=== PATIENT | female | born 1985 | race Caucasian/White ===

== ENCOUNTER 2017-04-17 17:17 | Emergency (ER) | payer OTHER ==
--- NOTE | 2017-04-17 19:32 | EDM.PDOC ---
<Jem Leija - Last Filed: 04/17/17 19:32> ED HPI GENERAL MEDICAL PROBLEM - General Chief Complaint: Abdominal Pain Stated Complaint: R ABDOMINAL PAIN Time Seen by Provider: 04/17/17 18:41 Source of Information: Reports: Patient, RN Notes Reviewed History Limitations: Reports: No Limitations - History of Present Illness INITIAL COMMENTS - FREE TEXT/NARRATIVE: The patient states that she developed sharp/shooting pain to her right lower quadrant this morning. The pain has been coming and going ever since, usually lasting about 15-20 minutes. She states that she is pain-free at this time. When she has the pain, it is made better if she presses on her right lower quadrant, but she has not noticed any other modifiers. She states that she has not an appetite today, but denies nausea, vomiting, constipation, urinary symptoms, or fever. She states that she had watery diarrhea this past 04/15/2017, but none since. No prior similar symptoms. The patient has not tried any home remedies or treatments. The patient's LMP was 03/29/2017, and was normal. The patient's PCP is her Medical Chemist, Dr. Stallings. 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 - Past Surgical History HEENT Surgical History: Reports: Oral Surgery ([place] teeth extraction) Social & Family History - Family History Family Medical History: Noncontributory - Tobacco Use Smoking Status *Q: Never Smoker Second Hand Smoke Exposure: Yes - Caffeine Use Caffeine Use: Reports: Soda - Alcohol Use Alcohol Use History: Yes Alcohol Use Frequency: Socially - Recreational Drug Use Recreational Drug Use: No - Living Situation & Occupation Living situation: Reports: , with Family (Daughter) ED ROS GENERAL - Review of Systems Review Of Systems: See Below Constitutional: Reports: No Symptoms HEENT: Reports: No Symptoms, Other (Sinus congestion x 5-6 weeks) Respiratory: Reports: Cough (x 5-6 weeks) Cardiovascular: Reports: No Symptoms Endocrine: Reports: No Symptoms GI/Abdominal: Reports: No Symptoms : Reports: No Symptoms Musculoskeletal: Reports: No Symptoms Skin: Reports: No Symptoms Neurological: Reports: No Symptoms Psychiatric: Reports: No Symptoms Hematologic/Lymphatic: Reports: No Symptoms Immunologic: Reports: No Symptoms ED EXAM, GI/ABD - Physical Exam Exam: See Below Exam Limited By: No Limitations General Appearance: Alert, WD/WN, No Apparent Distress Eyes: Bilateral: Normal Appearance, EOMI Ears: Normal External Exam, Hearing Grossly Normal Nose: Normal Inspection, No Blood Throat/Mouth: Normal Inspection, Normal Lips, Normal Voice, No Airway Compromise Head: Atraumatic, Normocephalic Neck: Normal Inspection, Full Range of Motion Respiratory/Chest: No Respiratory Distress, Lungs Clear, Normal Breath Sounds, No Accessory Muscle Use Cardiovascular: Normal Peripheral Pulses, Regular Rate, Rhythm, No Gallop, No JVD, No Murmur, No Rub GI/Abdominal Exam: Normal Bowel Sounds, Soft, Non-Tender (even to the RLQ), No Organomegaly, No Distention, No Abnormal Bruit, No Mass, Pelvis Stable (Female) Exam: Deferred Rectal (Female) Exam: Deferred Back Exam: Normal Inspection, Full Range of Motion. No: CVA Tenderness (L), CVA Tenderness (R) Extremities: Normal Inspection, Normal Range of Motion, No Pedal Edema, Normal Capillary Refill Neurological: Alert, Oriented, Normal Cognition, No Motor/Sensory Deficits Psychiatric: Normal Affect Skin Exam: Warm, Dry, Intact, Normal Color, No Rash Course - Vital Signs Last Recorded V/S: Last Vital Signs Temp 97.4 F 04/17/17 17:40 Pulse 79 04/17/17 17:40 Resp 16 04/17/17 17:40 BP 126/82 04/17/17 17:40 Pulse Ox 100 04/17/17 17:40 - Orders/Labs/Meds Orders: Active Orders 24 hr Category Date Time Status Abdomen 1V Upright [CR] Stat Exams 04/17/17 19:08 Stop Req Labs: Laboratory Tests 04/17/17 04/17/17 04/17/17 Range/Units 19:18 19:18 19:18 WBC 6.66 (3.98-10.04) K/mm3 RBC 4.83 (3.98-5.22) M/mm3 Hgb 14.3 (11.2-15.7) gm/L Hct 41.9 (34.1-44.9) % MCV 86.7 (79.4-94.8) fl MCH 29.6 (25.6-32.2) pg MCHC 34.1 (32.2-35.5) g/dl RDW Std Deviation 42.2 (36.4-46.3) fL Plt Count 327 (182-369) K/mm3 MPV 9.3 L (9.4-12.3) fl Neutrophils % (Manual) 45 (40-60) % Band Neutrophils % 0 (0-10) % Lymphocytes % (Manual) 48 H (20-40) % Atypical Lymphs % 0 % Monocytes % (Manual) 6 (2-10) % Eosinophils % (Manual) 1 (0.7-5.8) % Basophils % (Manual) 0 L (0.1-1.2) Platelet Estimate Adequate RBC Morph Comment Normal Sodium 141 (136-145) mEq/L Potassium 3.8 (3.5-5.1) mEq/L Chloride 106 (98-107) mEq/L Carbon Dioxide 24 (21-32) mEq/L Anion Gap 14.8 (5-15) BUN 14 (7-18) mg/dL Creatinine 0.9 (0.55-1.02) mg/dL Est Cr Clr Drug Dosing 78.93 mL/min Estimated GFR (MDRD) > 60 (>60) mL/min BUN/Creatinine Ratio 15.6 (14-18) Glucose 90 (74-106) mg/dL Calcium 8.5 (8.5-10.1) mg/dL Total Bilirubin 0.5 (0.2-1.0) mg/dL AST 18 (15-37) U/L ALT 26 (14-59) U/L Alkaline Phosphatase 52 (46-116) U/L C-Reactive Protein < 0.2 (<1.0) mg/dL Total Protein 7.4 (6.4-8.2) g/dl Albumin 3.5 (3.4-5.0) g/dl Globulin 3.9 gm/dL Albumin/Globulin Ratio 0.9 L (1-2) Lipase 256 (73-393) U/L Urine Color (Yellow) Urine Appearance (Clear) Urine pH (5.0-8.0) Ur Specific [place] (1.005-1.030) Urine Protein (Negative) Urine Glucose (UA) (Negative) Urine Ketones (Negative) Urine Occult Blood (Negative) Urine Nitrite (Negative) Urine Bilirubin (Negative) Urine Urobilinogen (0.2-1.0) Ur Leukocyte Esterase (Negative) Urine RBC (0-5) /hpf Urine WBC (0-5) /hpf Ur Epithelial Cells (0-5) /hpf Urine Bacteria (FEW) /hpf Urine Mucus (FEW) /hpf Urine HCG, Qual (NEGATIVE) 04/17/17 04/17/17 Range/Units 19:20 19:20 WBC (3.98-10.04) K/mm3 RBC (3.98-5.22) M/mm3 Hgb (11.2-15.7) gm/L Hct (34.1-44.9) % MCV (79.4-94.8) fl MCH (25.6-32.2) pg MCHC (32.2-35.5) g/dl RDW Std Deviation (36.4-46.3) fL Plt Count (182-369) K/mm3 MPV (9.4-12.3) fl Neutrophils % (Manual) (40-60) % Band Neutrophils % (0-10) % Lymphocytes % (Manual) (20-40) % Atypical Lymphs % % Monocytes % (Manual) (2-10) % Eosinophils % (Manual) (0.7-5.8) % Basophils % (Manual) (0.1-1.2) Platelet Estimate RBC Morph Comment Sodium (136-145) mEq/L Potassium (3.5-5.1) mEq/L Chloride (98-107) mEq/L Carbon Dioxide (21-32) mEq/L Anion Gap (5-15) BUN (7-18) mg/dL Creatinine (0.55-1.02) mg/dL Est Cr Clr Drug Dosing mL/min Estimated GFR (MDRD) (>60) mL/min BUN/Creatinine Ratio (14-18) Glucose (74-106) mg/dL Calcium (8.5-10.1) mg/dL Total Bilirubin (0.2-1.0) mg/dL AST (15-37) U/L ALT (14-59) U/L Alkaline Phosphatase (46-116) U/L C-Reactive Protein (<1.0) mg/dL Total Protein (6.4-8.2) g/dl Albumin (3.4-5.0) g/dl Globulin gm/dL Albumin/Globulin Ratio (1-2) Lipase (73-393) U/L Urine Color Light yellow (Yellow) Urine Appearance Clear (Clear) Urine pH 6.5 (5.0-8.0) Ur Specific [place] 1.020 (1.005-1.030) Urine Protein Negative (Negative) Urine Glucose (UA) Negative (Negative) Urine Ketones Negative (Negative) Urine Occult Blood Trace-intact H (Negative) Urine Nitrite Negative (Negative) Urine Bilirubin Negative (Negative) Urine Urobilinogen 0.2 (0.2-1.0) Ur Leukocyte Esterase Trace H (Negative) Urine RBC 0-5 (0-5) /hpf Urine WBC 0-5 (0-5) /hpf Ur Epithelial Cells 5-10 H (0-5) /hpf Urine Bacteria Few (FEW) /hpf Urine Mucus Few (FEW) /hpf Urine HCG, Qual Negative (NEGATIVE) - Re-Assessments/Exams Free Text/Narrative Re-Assessment/Exam: 04/17/17 19:33 The patient reports intermittent right lower quadrant pain since this morning, but is pain-free here in the ED, and her abdominal exam is benign, with no tenderness. I have ordered blood work, a urinalysis, a urine test, and an upright abdominal x-ray, however, I do not feel that the benefit of a CT scan of the abdomen and pelvis is worse the risk from radiation, as the likelihood of finding the cause of her pain is very low, given her current physical exam status. If her clinical condition changes, this can be reconsidered. This was explained to the patient, who understands. Case discussed with Dr. Abhi Hernandez, and care of the patient turned over to him at this time, for change of shift. Departure - Departure Disposition: Home, Self-Care 01 Clinical Impression: Abdominal pain Qualifiers: Abdominal location: right lower quadrant Qualified Code(s): R10.31 - Right lower quadrant pain - Discharge Information Referrals: Eduardo Stallings MD [Primary Care Provider] - Forms: ED Department Discharge Additional Instructions: Clear liquids and then very bland diet as tolerated, probiotic and take that twice daily for about the next week, follow-up clinic as needed, return to ED as needed, especially if you do develop worsening pain of your right lower abdomen and symptoms otherwise worsening in any way. <TerriAbhi Boyd - Last Filed: 04/17/17 20:08> Course - Re-Assessments/Exams Free Text/Narrative Re-Assessment/Exam: 04/17/17 20:06 Have assumed care from Dr. Leija after change of shift. I agree with his history and exam as documented. She did have a couple episodes of mild discomfort while awaiting lab work but once again her pain is completely gone. On exam of her abdomen she is totally nontender including right upper quadrant and right lower quadrant with no guarding or rebound at this time. White Blood count came back normal with no left shift. C-reactive protein 0.2. She does not have a surgical abdomen at this time. For some reason the x-ray previously ordered of her abdomen has not yet been done so I have canceled that exam. Of note she did have a couple of episodes of diarrhea last week and appetite has not been completely back to normal since then. Discharge instructions as documented. Departure - Departure Time of Disposition: 20:03 Condition: Fair
== END 2017-04-17 20:10 | disposition home or self-care (01) ==
LOC: JD.ED 17:17
DX: R10.31 Right lower quadrant pain (principal)
CPT/HCPCS: 36415; 80053; 81001; 81025; 83690; 85025; 86140; 99282; 99284

== ENCOUNTER 2021-04-04 01:20 | Emergency (ER) | payer OTHER ==
--- NOTE | 2021-04-04 01:49 | EDM.PDOC ---
ED HPI GENERAL MEDICAL PROBLEM - General Chief Complaint: Abdominal Pain Stated Complaint: 19WKS PREG/ABD PAIN Time Seen by Provider: 04/04/21 01:39 - History of Present Illness INITIAL COMMENTS - FREE TEXT/NARRATIVE: 35-year-old female presents the emergency room with abdominal pain. Patient is 19 weeks she is a 2 para 1. Roughly 3 to 4 hours prior to arrival the patient developed some right mid abdominal pain. Patient has not experienced pain like this in the past. She has not had any associated nausea or vomiting with this no diarrhea. Patient denies any fevers or chills. Prior to this is gone without any problems. Her forest pathologist is Dr. Stallings. Abdominal Pain Score (Numeric/FACES): 8 - Related Data Allergies Allergy/AdvReac Type Severity Reaction Status Date / Time No Known Allergies Allergy Verified 04/04/21 01:38 Home Meds: Home Meds . 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 Denies: Constipation, Diarrhea, Nausea, Vomiting : Reports: No Symptoms Musculoskeletal: Reports: No Symptoms Skin: Reports: No Symptoms Neurological: Reports: No Symptoms ED EXAM, GENERAL - Physical Exam Exam: See Below Exam Limited By: No Limitations General Appearance: Alert, No Apparent Distress Head: Atraumatic, Normocephalic Neck: Normal Inspection, Supple, Non-Tender, Full Range of Motion Respiratory/Chest: No Respiratory Distress, Lungs Clear, Normal Breath Sounds Cardiovascular: Regular Rate, Rhythm, No Edema, No Murmur GI/Abdominal: Normal Bowel Sounds, Soft, Other (Fundal height is nearly to the umbilicus. At the top of this more towards the right side the patient seems to have palpatory discomfort and this is the pain that brought her in.) Back Exam: Normal Inspection. No: CVA Tenderness (L), CVA Tenderness (R) Course - Vital Signs Last Recorded V/S: Last Vital Signs Temp 36.9 C 04/04/21 01:35 Pulse 91 04/04/21 01:35 Resp 16 04/04/21 01:35 BP 128/71 04/04/21 01:35 Pulse Ox 100 04/04/21 01:35 - Orders/Labs/Meds Orders: Active Orders 24 hr Category Date Time Status Abdomen Ltd [US] Stat Exams 04/04/21 03:15 Taken Lactated Ringers [Ringers, Lactated] 1,000 ml Med 04/04/21 02:15 Active IV ASDIRECTED Medication Orders Lactated Ringer's (Ringers, Lactated) 1,000 mls @ 100 mls/hr IV ASDIRECTED LI Last Admin: 04/04/21 02:16 Dose: 100 mls/hr Documented by: EDUIN Labs: Laboratory Tests 04/04/21 04/04/21 04/04/21 Range/Units 02:03 02:03 03:10 WBC 10.90 H (3.98-10.04) K/mm3 RBC 4.06 (3.98-5.22) M/mm3 Hgb 12.4 (11.2-15.7) gm/dl Hct 36.8 (34.1-44.9) % MCV 90.6 (79.4-94.8) fl MCH 30.5 (25.6-32.2) pg MCHC 33.7 (32.2-35.5) g/dl RDW Std Deviation 46.1 (36.4-46.3) fL Plt Count 256 D (182-369) K/mm3 MPV 9.4 (9.4-12.3) fl Neut % (Auto) 66.1 (34.0-71.1) % Lymph % (Auto) 23.9 (19.3-51.7) % [place] % (Auto) 7.9 (4.7-12.5) % Eos % (Auto) 1.2 (0.7-5.8) Baso % (Auto) 0.3 (0.1-1.2) % Neut # (Auto) 7.22 H (1.56-6.13) K/mm3 Lymph # (Auto) 2.60 (1.18-3.74) K/mm3 [place] # (Auto) 0.86 H (0.24-0.36) K/mm3 Eos # (Auto) 0.13 (0.04-0.36) K/mm3 Baso # (Auto) 0.03 (0.01-0.08) K/mm3 Sodium 140 (136-145) mEq/L Potassium 3.7 (3.5-5.1) mEq/L Chloride 107 (98-107) mEq/L Carbon Dioxide 24 (21-32) mEq/L Anion Gap 12.7 (5-15) BUN 11 (7-18) mg/dL Creatinine 0.7 (0.55-1.02) mg/dL Est Cr Clr Drug Dosing 97.79 mL/min Estimated GFR (MDRD) > 60 (>60) mL/min BUN/Creatinine Ratio 15.7 (14-18) Glucose 88 (70-99) mg/dL Calcium 8.2 L (8.5-10.1) mg/dL Total Bilirubin 0.3 (0.2-1.0) mg/dL AST 17 (15-37) U/L ALT 25 (14-59) U/L Alkaline Phosphatase 52 (46-116) U/L C-Reactive Protein 2.1 H* (<1.0) mg/dL Total Protein 6.3 L (6.4-8.2) g/dl Albumin 2.8 L (3.4-5.0) g/dl Globulin 3.5 gm/dL Albumin/Globulin Ratio 0.8 L (1-2) Lipase 178 (73-393) U/L Urine Color Yellow (Yellow) Urine Appearance Clear (Clear) Urine pH 6.5 (5.0-8.0) Ur Specific [place] 1.020 (1.005-1.030) Urine Protein Negative (Negative) Urine Glucose (UA) Negative (Negative) Urine Ketones Negative (Negative) Urine Occult Blood Negative (Negative) Urine Nitrite Negative (Negative) Urine Bilirubin Negative (Negative) Urine Urobilinogen 0.2 (0.2-1.0) Ur Leukocyte Esterase Negative (Negative) Meds: Medications Generic Name Dose Route Start Last Admin Trade Name Freq PRN Reason Stop Dose Admin Lactated Ringer's 1,000 mls @ 100 mls/hr 04/04/21 02:15 04/04/21 02:16 Ringers, Lactated IV 100 mls/hr ASDIRECTED [facility] Administration - Re-Assessments/Exams Free Text/Narrative Re-Assessment/Exam: 04/04/21 06:35 Laboratory evaluation is nonsuggestive C-reactive protein is minimally elevated at 2.1. I did order an abdominal ultrasound which is unrevealing other than she has a 3.3 x 1.1 x 1.8 cm soft tissue density in the umbilical region thought to represent an umbilical hernia. After reviewing this I did go back and the patient is somewhat overweight but could palpate the midline hernia her pain initially was over towards the right but with palpation of this she has pain that goes to the right. Case discussed with Dr. Stallings who I have reviewed the case with and will see the patient in follow-up tomorrow morning at approximately 9 AM Departure - Departure Time of Disposition: 06:37 Disposition: Home, Self-Care 01 Clinical Impression: Abdominal pain affecting , Umbilical hernia - Discharge Information Referrals: Eduardo Stallings MD [Primary Care Provider] - Forms: ED Department Discharge Additional Instructions: Return to the emergency room with any questions problems or worsening symptoms. Return if you develop nausea worsening pain bloating or other concerning abdominal symptoms. Follow-up with Dr. Stallings Monday morning call his office at 8:00 and tell them that you were seen here in the emergency room and the case was reviewed with Dr. Stallings who wants to see you at around 9:00 after his morning surgical case. Tylenol as needed Sepsis Event Note (ED) - Evaluation Sepsis Screening Result: No Definite Risk - Focused Exam Vital Signs: Vital Signs Temp Pulse Resp BP Pulse Ox 04/04/21 01:35 36.9 C 91 16 128/71 100 - My Orders Last 24 Hours: My Active Orders 04/04/21 02:15 Lactated Ringers [Ringers, Lactated] 1,000 ml IV ASDIRECTED 04/04/21 03:15 Abdomen Ltd [US] Stat - Assessment/Plan Last 24 Hours: My Active Orders 04/04/21 02:15 Lactated Ringers [Ringers, Lactated] 1,000 ml IV ASDIRECTED 04/04/21 03:15 Abdomen Ltd [US] Stat
[2021-04-04] MEDS ORDERED: Lactated Ringers 1,000 ML IV SCH (02:15)
--- NOTE | 2021-04-04 08:19 | US ---
Limited abdominal ultrasound: Multiple real-time images of the upper right abdomen were obtained. Comparison: No prior abdominal imaging is available. Liver shows no focal abnormality. Pancreas shows no discrete abnormality. Right kidney shows no hydronephrosis or mass. Right kidney has a length of 11.5 cm. Gallbladder contains no shadowing gallstones. No gallbladder wall thickening or biliary duct dilatation is seen. Hyperechoic area is seen within the superficial abdominal wall in the area of the umbilicus presumably due to fat containing umbilical hernia. This finding measures 3.3 x 1.1 x 1.8 cm. Inferior vena cava is patent. Normal hepatopedal flow is seen within the portal vein. Impression: 1. Fat-containing umbilical hernia. 2. No additional abnormality is seen on right upper quadrant abdominal ultrasound. Diagnostic code #2 I agree with preliminary report from [facility], finalized on 04/04/21, 7:12 AM CDT, code 1
== END 2021-04-04 06:46 | disposition home or self-care (01) ==
LOC: JD.ED 01:20
DX: O99.612 Diseases of the digestive system complicating pregnancy, second trimester (principal); K42.9 Umbilical hernia without obstruction or gangrene; Z3A.19 19 weeks gestation of pregnancy
CPT/HCPCS: 36415; 76705; 80053; 81003; 83690; 85025; 86140; 99284; J7120

== ENCOUNTER 2021-08-26 06:51 | Inpatient (IN) | payer OTHER ==
[2021-08-26] MEDS ORDERED: Ondansetron 4 MG/2 ML SDV IVPUSH PRN (07:46)
[2021-08-26] MEDS ORDERED: Sodium Chloride 0.9% 10 ML Syringe FLUSH PRN (07:46)
[2021-08-26] MEDS ORDERED: Nalbuphine 10 MG/1 ML Vial IVPUSH PRN (07:46)
[2021-08-26] MEDS ORDERED: Oxytocin/Lactated Ringers 10 UNIT/1,000 ML BAG IV SCH ×2 (08:00)
[2021-08-26] MEDS ORDERED: Misoprostol 25 MCG (1/4 of 100 MCG) Tab VAG ONE (09:05)
[2021-08-26] MEDS: Lactated Ringers 1,000 ML IV SCH ×3 (09:15→18:21)
[2021-08-26] MEDS ORDERED: fentaNYL 100 MCG/2 ML SDV EPIDUR PRN (10:37)
[2021-08-26] MEDS ORDERED: diphenhydrAMINE 50 MG/ML SDV IVPUSH PRN (10:37)
[2021-08-26] MEDS ORDERED: Bupivacaine/fentaNYL/NS 100 ML Bag EPIDUR PRN (10:37)
[2021-08-26] MEDS ORDERED: ePHEDrine 50 MG/ML SDV IVPUSH PRN (10:37)
[2021-08-26] MEDS: Sodium Chloride 0.9% 10 ML Syringe FLUSH SCH (23:12)
[2021-08-26] MEDS ORDERED: Witch Hazel Medicated Pads 40/Jar TOP PRN (23:14)
[2021-08-26] MEDS ORDERED: Benzocaine/Menthol 20%-0.5% Spray 78 GM Cannister TOP PRN (23:14)
[2021-08-26] MEDS ORDERED: Acetaminophen 325 MG Tab PO PRN (23:14)
[2021-08-27] MEDS: Ibuprofen 600 MG Tab PO PRN ×5 (00:28→20:48)
[2021-08-27] MEDS: Docusate Sodium 100 MG Cap PO SCH ×2 (07:43→12:31)
[2021-08-27] MEDS: Prenatal Multivitamin with Calcium/Folic Acid/Iron Tab PO SCH ×2 (07:44→09:24)
[2021-08-28] MEDS: Ibuprofen 600 MG Tab PO PRN (03:21)
[2021-08-28] MEDS: Prenatal Multivitamin with Calcium/Folic Acid/Iron Tab PO SCH (12:02)
[2021-08-28] MEDS: Docusate Sodium 100 MG Cap PO SCH (12:02)
== END 2021-08-28 11:50 | disposition home or self-care (01) | DRG 807 ==
LOC: JD.OB 06:51 → OBSVTOIN 21:52 → JD.OB 21:52
PROVIDERS: ADMIT Obstetrics & Gynecology; ATTEND Obstetrics & Gynecology
PROC: 10E0XZZ Delivery of Products of Conception, External Approach (ICD-10-PCS; principal; 2021-08-26)
PROC: 0KQM0ZZ Repair Perineum Muscle, Open Approach (ICD-10-PCS; 2021-08-26)
PROC: 10H07YZ Insertion of Other Device into Products of Conception, Via Natural or Artificial Opening (ICD-10-PCS; 2021-08-26)
PROC: 10907ZC Drainage of Amniotic Fluid, Therapeutic from Products of Conception, Via Natural or Artificial Opening (ICD-10-PCS; 2021-08-26)
PROC: 3E0P7VZ Introduction of Hormone into Female Reproductive, Via Natural or Artificial Opening (ICD-10-PCS; 2021-08-26)
PROC: 3E0R3BZ Introduction of Anesthetic Agent into Spinal Canal, Percutaneous Approach (ICD-10-PCS; 2021-08-26)
DX: O69.1XX0 Labor and delivery complicated by cord around neck, with compression, not applicable or unspecified (principal); Z37.0 Single live birth; O76 Abnormality in fetal heart rate and rhythm complicating labor and delivery; Z3A.39 39 weeks gestation of pregnancy; O70.1 Second degree perineal laceration during delivery; O40.3XX0 Polyhydramnios, third trimester, not applicable or unspecified; O99.214 Obesity complicating childbirth; Z20.822 Contact with and (suspected) exposure to COVID-19
CPT/HCPCS: 36415; 51702; 59025; 59409; 85025; 86592; A9270-GY; J1200; J2590; J3010; J7120; U0002

== ENCOUNTER → 2023-03-14 | Day surgery (SDC) | payer OTHER ==
[~2023-03-14] MED LIST: Dexamethasone 4 MG/ML 5 ML MDV ONE; Doxycycline Monohydrate 100 MG Cap PO ONE; Ketorolac 15 MG/ML SDV ONE; Lactated Ringers 1,000 ML IV SCH; Lactated Ringers 1,000 ML ONE; Lidocaine 1% 2 ML ONE; Lidocaine 2% 100 MG/5 ML Syringe ONE; Lidocaine 2% 11 ML Jelly Filled Syringe ONE; Methylergonovine 0.2 MG/1 ML Amp ONE; Midazolam 1 MG/ML 2 ML SDV ONE; Ondansetron 4 MG/2 ML SDV IVPUSH ONE; Ondansetron 4 MG/2 ML SDV ONE; Propofol 200 MG/20 ML SDV ONE; Sodium Chloride 0.9% 10 ML Syringe FLUSH PRN; Sodium Chloride 0.9% 10 ML Syringe FLUSH SCH; fentaNYL 100 MCG/2 ML SDV ONE
== END | disposition home or self-care (01) ==
LOC: JD.SDS 08:07
PROVIDERS: ATTEND Obstetrics & Gynecology
DX: O02.1 Missed abortion (principal); K21.9 Gastro-esophageal reflux disease without esophagitis; Z79.899 Other long term (current) drug therapy
CPT/HCPCS: 59820; A9270; J1100; J1885; J2210; J2250; J2405; J2704; J3010; J7120; 01965; J3490

== ENCOUNTER 2024-04-04 21:00 | Inpatient (IN) | payer OTHER ==
[~2024-04-04 21:00] MED LIST changes: +Bupivacaine 0.25% 10 ML SDV ONE; -Dexamethasone 4 MG/ML 5 ML MDV ONE; -Doxycycline Monohydrate 100 MG Cap PO ONE; -Ketorolac 15 MG/ML SDV ONE; -Lactated Ringers 1,000 ML IV SCH; -Lactated Ringers 1,000 ML ONE; -Lidocaine 1% 2 ML ONE; -Lidocaine 2% 100 MG/5 ML Syringe ONE; -Lidocaine 2% 11 ML Jelly Filled Syringe ONE; -Methylergonovine 0.2 MG/1 ML Amp ONE; -Midazolam 1 MG/ML 2 ML SDV ONE; -Ondansetron 4 MG/2 ML SDV IVPUSH ONE; -Ondansetron 4 MG/2 ML SDV ONE; -Propofol 200 MG/20 ML SDV ONE; -Sodium Chloride 0.9% 10 ML Syringe FLUSH PRN; -Sodium Chloride 0.9% 10 ML Syringe FLUSH SCH; -fentaNYL 100 MCG/2 ML SDV ONE
[2024-04-04] MEDS ORDERED: Calcium Carbonate 500 MG Tab.Chew PO PRN (22:07)
[2024-04-04] MEDS ORDERED: Ondansetron 4 MG/2 ML SDV IVPUSH PRN (22:07)
[2024-04-04] MEDS ORDERED: Lidocaine 1% 50 ML MDV INJECT PRN (22:07)
[2024-04-04] MEDS ORDERED: Nalbuphine 10 MG/1 ML Vial IVPUSH PRN (22:07)
[2024-04-04] MEDS ORDERED: Sodium Chloride 0.9% 10 ML Syringe FLUSH PRN (22:07)
[2024-04-04] MEDS ORDERED: Oxytocin/0.9 % Sodium Chloride 30 UNIT/500 ML BAG IV SCH ×2 (22:15)
[2024-04-04 22:25] LABS: BASOPHILS PERCENT AUTO 0.4 % (0.0-1.0); EOSINOPHILS ABSOLUTE AUTO 0.1 K/mm3 (0.0-0.4); EOSINOPHILS PERCENT AUTO 0.6 % (0.0-6.0); HEMATOCRIT 35.2 % (37.0-47.0); HEMOGLOBIN 11.7 gm/dl (12.0-16.0); IMMATURE GRAN ABSOLUTE AUTO 0.11 K/mm3 (0.00-0.05); LYMPHOCYTES ABSOLUTE AUTO 2.5 K/mm3 (1.0-4.8); LYMPHOCYTES PERCENT AUTO 21.8 % (24.0-44.0); MEAN CORPUSCULAR HEMOGLOBIN 28.7 pg (28.0-32.0); MEAN CORPUSCULAR HGB CONC 33.2 g/dl (32.0-36.0); MEAN CORPUSCULAR VOLUME 86.5 fl (83.0-99.0); MEAN PLATELET VOLUME 9.9 fl (9.4-12.3); MONOCYTES ABSOLUTE AUTO 0.8 K/mm3 (0.0-0.8); MONOCYTES PERCENT AUTO 7.4 % (0.0-8.0); NEUTROPHILS ABSOLUTE AUTO 7.8 K/mm3 (1.8-7.7); NEUTROPHILS PERCENT AUTO 68.8 % (41.0-71.0); PLATELET COUNT,PLT 293 K/mm3 (150-400); RED BLOOD CELL COUNT 4.07 M/mm3 (4.10-5.30)
[2024-04-04] MEDS ORDERED: ePHEDrine 50 MG/ML SDV IVPUSH PRN (22:55)
[2024-04-04] MEDS ORDERED: diphenhydrAMINE 50 MG/ML SDV IVPUSH PRN (22:55)
[2024-04-04] MEDS: Lactated Ringers 1,000 ML IV SCH (22:58)
[2024-04-04] MEDS: fentaNYL 100 MCG/2 ML SDV EPIDUR PRN (23:01)
[2024-04-04] MEDS: Bupivacaine/fentaNYL/NS 100 ML Bag EPIDUR PRN (23:02)
[2024-04-05] MEDS ORDERED: Ondansetron 4 MG/2 ML SDV ONE (00:03)
[2024-04-05] MEDS ORDERED: Ketorolac 30 MG/ML SDV ONE (00:03)
[2024-04-05] MEDS ORDERED: Lidocaine 2% with EPINEPHrine 1:200,000 20 ML SDV ONE (00:03)
[2024-04-05] MEDS ORDERED: Lactated Ringers 1,000 ML ONE (00:03)
[2024-04-05] MEDS ORDERED: Sodium Bicarbonate 8.4% 50 MEQ/50 ML SDV ONE (00:03)
[2024-04-05] MEDS ORDERED: Morphine PF 10 MG/10 ML SDV ONE (00:03)
[2024-04-05] MEDS ORDERED: Terbutaline 1 MG/ML SDV ONE (00:06)
[2024-04-05] MEDS ORDERED: Oxytocin 10 Units/1 ML SDV ONE ×3 (00:14→01:25)
[2024-04-05] MEDS ORDERED: Phenylephrine 1% 10 MG/ML SDV ONE (00:14)
[2024-04-05] MEDS ORDERED: ceFAZolin 2 GM Vial ONE (00:15)
[2024-04-05] MEDS ORDERED: Dexamethasone 4 MG/ML SDV ONE (00:22)
[2024-04-05] MEDS ORDERED: Methylergonovine 0.2 MG/1 ML Amp ONE (00:39)
[2024-04-05] MEDS ORDERED: Ondansetron 4 MG/2 ML SDV IVPUSH PRN (00:57)
[2024-04-05] MEDS ORDERED: fentaNYL 100 MCG/2 ML SDV IVPUSH PRN (00:57)
[2024-04-05] MEDS ORDERED: diphenhydrAMINE 50 MG/ML SDV IVPUSH PRN ×2 (00:57→02:47)
[2024-04-05] MEDS ORDERED: Meperidine 50 MG/ML Vial IVPUSH PRN (00:57)
[2024-04-05] MEDS ORDERED: Ondansetron 4 MG/2 ML SDV IV PRN (02:47)
[2024-04-05] MEDS ORDERED: Acetaminophen/oxyCODONE 325-5 MG Tab PO PRN (02:47)
[2024-04-05] MEDS ORDERED: ePHEDrine 50 MG/ML SDV IVPUSH PRN (02:47)
[2024-04-05] MEDS: Dextrose 5%-Lactated Ringers 1,000 ML IV SCH (03:18)
[2024-04-05] MEDS: Ketorolac 30 MG/ML SDV IVPUSH SCH (08:40)
[2024-04-05] MEDS ORDERED: Sodium Chloride 0.9% 10 ML Syringe FLUSH SCH (09:00)
[2024-04-05] MEDS: ceFAZolin 1 GM in Sodium Chloride 0.9% 50 ML IV SCH (09:01)
[2024-04-05] MEDS: buPROPion 150 MG Tab.ER PO SCH (10:52)
[2024-04-05 16:36] LABS: BASOPHILS PERCENT AUTO 0.1 % (0.0-1.0); EOSINOPHILS PERCENT AUTO 0.1 % (0.0-6.0); HEMATOCRIT 26.2 % (37.0-47.0); HEMOGLOBIN 8.6 gm/dl (12.0-16.0); IMMATURE GRAN ABSOLUTE AUTO 0.11 K/mm3 (0.00-0.05); IMMATURE GRAN PERCENT AUTO 0.7 % (0.0-0.4); LYMPHOCYTES ABSOLUTE AUTO 1.6 K/mm3 (1.0-4.8); LYMPHOCYTES PERCENT AUTO 10.8 % (24.0-44.0); MEAN CORPUSCULAR HEMOGLOBIN 28.8 pg (28.0-32.0); MEAN CORPUSCULAR HGB CONC 32.8 g/dl (32.0-36.0); MEAN CORPUSCULAR VOLUME 87.6 fl (83.0-99.0); MONOCYTES ABSOLUTE AUTO 1.3 K/mm3 (0.0-0.8); MONOCYTES PERCENT AUTO 8.4 % (0.0-8.0); NEUTROPHILS ABSOLUTE AUTO 12.1 K/mm3 (1.8-7.7); NEUTROPHILS PERCENT AUTO 79.9 % (41.0-71.0); PLATELET COUNT,PLT 245 K/mm3 (150-400); RED BLOOD CELL COUNT 2.99 M/mm3 (4.10-5.30); WHITE BLOOD CELL COUNT,WBC 15.18 K/mm3 (3.9-11.3)
[2024-04-05] MEDS: Lactated Ringers 500 ML IV ONE (16:50)
[2024-04-05 17:08] LABS: A/G RATIO 0.6 (1-2); ALBUMIN 2.1 g/dl (3.4-5.0); ANION GAP 12.3 (5-15); BILIRUBIN TOTAL 0.4 mg/dL (0.2-1.0); BUN/CREATININE RATIO 18.9 (14-18); CREATININE 0.9 mg/dL (0.55-1.02); EST CRCL DRUG DOSING (CG) 73.9 mL/min; POTASSIUM,K 4.3 mEq/L (3.5-5.1); PROTEIN TOTAL,TP 5.6 g/dl (6.4-8.2)
[2024-04-05] MEDS: Acetaminophen/oxyCODONE 325-5 MG Tab PO PRN (22:59)
[2024-04-06] MEDS: Ibuprofen 600 MG Tab PO SCH (02:43)
[2024-04-06 06:09] LABS: HEMATOCRIT 22.8 % (37.0-47.0); MEAN CORPUSCULAR HEMOGLOBIN 28.4 pg (28.0-32.0); MEAN CORPUSCULAR VOLUME 88.7 fl (83.0-99.0); MEAN PLATELET VOLUME 9.7 fl (9.4-12.3); PLATELET COUNT,PLT 186 K/mm3 (150-400); RED BLOOD CELL COUNT 2.57 M/mm3 (4.10-5.30); WHITE BLOOD CELL COUNT,WBC 8.56 K/mm3 (3.9-11.3)
[2024-04-06 06:13] LABS: HEMOGLOBIN 7.3 gm/dl (12.0-16.0)
[2024-04-06] MEDS: Ferrous Sulfate 324 MG Tab.EC PO SCH (07:11)
[2024-04-06] MEDS: Docusate Sodium 100 MG Cap PO PRN (21:21)
[2024-04-07] MEDS ORDERED: oxyCODONE 5 MG Tab PO PRN (09:18)
== END 2024-04-07 13:00 | disposition home or self-care (01) | DRG 787 ==
LOC: JD.OBCHECK 21:00 → JD.OB 21:05 → JD.OBCHECK 22:23 → JD.OB 22:25 → OBSVTOIN 04-05 00:14 → JD.OB 04-05 00:15
PROVIDERS: ADMIT Obstetrics & Gynecology; ATTEND Obstetrics & Gynecology
PROC: 10D00Z1 Extraction of Products of Conception, Low, Open Approach (ICD-10-PCS; principal; 2024-04-05)
DX: O42.02 Full-term premature rupture of membranes, onset of labor within 24 hours of rupture (principal); D62 Acute posthemorrhagic anemia; O69.0XX0 Labor and delivery complicated by prolapse of cord, not applicable or unspecified; Z37.0 Single live birth; Z3A.39 39 weeks gestation of pregnancy; O90.81 Anemia of the puerperium; O99.214 Obesity complicating childbirth; O40.3XX0 Polyhydramnios, third trimester, not applicable or unspecified; O32.8XX0 Maternal care for other malpresentation of fetus, not applicable or unspecified
CPT/HCPCS: 01968; 36415; 59025; 74018; 74018-26; 80053; 85025; 85027; 86592; 86850; 86900; 86901; 94762; 99140; A9270-GY; J0665; J0690; J1100; J1885; J2210; J2274; J2371; J2405; J2590; J3010; J3490; J7120; J7121